=== PATIENT | female | born 1955 | race Caucasian/White ===

== ENCOUNTER → 2020-05-04 | Outpatient (CLI) | payer MEDICARE ==
[~2020-05-04] VITALS: Ht 165.1 cm; Wt 134.5 kg
[2020-05-04] VITALS (15 sets, daily range): BP systolic 95–163; BP diastolic 54–93; PULSE 66–91
[~2020-05-04] MED LIST: HCTZ12.5TAB PO; KLOR-CON SPRIN10 MEQ PO; LIPITOR 40MG TA40 MG PO; PRINIVIL10 MG PO; ZOLOFT 100MG100 MG PO; ZYLOPRIM 100MG100 MG PO
== END ==
LOC: COL.RAD 06:50
DX: K82.8 Other specified diseases of gallbladder (principal)
CPT/HCPCS: J2250; J3010

== ENCOUNTER 2020-06-15 09:53 | Day surgery (SDC) | payer MEDICARE ==
[2020-06-15] VITALS (7 sets, daily range): BP systolic 94–140; BP diastolic 41–71; PULSE 68–97; TEMP 97.5–97.8
[~2020-06-15] VITALS: Ht 165.1 cm; Wt 133.1 kg
--- NOTE | 2020-06-15 10:26 | NUR ---
Initial visit; Radioisotope Technician attempted to comfort patient who is about to have a Port-A-Cath Placement and was weeping. Radioisotope Technician offered encouraging words and prayer.
[2020-06-15] MEDS ORDERED: PROBIOTIC FORMU1 CAP PO (10:42)
--- NOTE | 2020-06-15 10:44 | NUR ---
TO RM 6 AT 1005- CALL LIGHT IN REACH
[2020-06-15] MEDS ORDERED: NORCO 325 MG-51 TAB PO (14:05)
--- NOTE | 2020-06-15 14:25 | NUR ---
TO RM 6 PER CART FROM PACU. DROWSY, BUT AWAKE AND TALKING TO STAFF. DRESSINGS CLEAN DRY INTACT. DENIES PAIN OR DISCOMFORT. DENIES NAUSEA OR VOMITING AT THIS TIME.
--- NOTE | 2020-06-15 14:40 | NUR ---
SAT UP MORE IN BED. RECEIVED GRAPE JUICE.
--- NOTE | 2020-06-15 14:55 | NUR ---
PATIENT ATE 1 PKG OF CRACKERS AND 100% GRAPE JUICE.
--- NOTE | 2020-06-15 15:09 | NUR ---
PATIENT TEXTING ON PHONE. RESTING QUIETLY
--- NOTE | 2020-06-15 15:25 | NUR ---
AMBULATED BATHROOM WITH MINIMAL ASSIST. VOIDED AND AMBULATED BACK TO BED AND TOLERATED WELL.
--- NOTE | 2020-06-15 15:45 | NUR ---
RECEIVED DISCHARGE INSTRUCTIONS AND VERBALIZED UNDERSTANDING. DISCONTINUED IV AND INT- CATHETER INTACT PATIENT TEXTING BROTHER FOR PICKUP PATIENT GETTING DRESSED. CLEAR DRESSING OVER SITE CLEAN DRY INTACT.
--- NOTE | 2020-06-15 16:05 | NUR ---
DISCHARGED PER WC BY NURSING STAFF TO PRIVATE CAR IN CARE OF BROTHER.
== END 2020-06-15 17:12 | disposition home or self-care (01) ==
LOC: SDCO 09:53
DX: C22.1 Intrahepatic bile duct carcinoma (principal); E66.01 Morbid (severe) obesity due to excess calories; I10 Essential (primary) hypertension; E78.5 Hyperlipidemia, unspecified; F32.9 Major depressive disorder, single episode, unspecified; F41.9 Anxiety disorder, unspecified; M17.10 Unilateral primary osteoarthritis, unspecified knee; K11.20 Sialoadenitis, unspecified; Z90.49 Acquired absence of other specified parts of digestive tract; Z88.0 Allergy status to penicillin; Z88.1 Allergy status to other antibiotic agents
CPT/HCPCS: C1788; J0690; J1100; J1644; J1885; J2405; J2704; J3010; J7120

== ENCOUNTER 2020-09-06 14:02 | Inpatient (IN) | payer MEDICARE ==
[~2020-09-06] VITALS: Ht 165.1 cm; Wt 138.2 kg
[~2020-09-06 14:02] MED LIST changes: +NORCO 325 MG-51 TAB PO; +PROBIOTIC FORMU1 CAP PO
[2020-09-06 15:31] VITALS: BP 79/42; PULSE 106; TEMP 97.6
[2020-09-06] MEDS ORDERED: COUMADIN 2MG2 MG/TAB PO (15:40)
[2020-09-06] MEDS ORDERED: MAGNESIUM ELEME30 MG (15:41)
--- NOTE | 2020-09-06 17:27 | NUR ---
Patient Kadie Jones transferred to [facility] via EMS from [facility]. Patient presented in the ER complaining of increased weakness, almost "passed out", but never lost conciousness. 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 PPE must be worn when handling patient's urine for seven days after administration. Last chemo date was 09/03/20, PPE must be work until 09/10/20. Patient has been experiencing N/V/D, which she states is not uncommon due to the chemo. Patient has a chemo port on her right chest. Patient is A&O and is able to ambulate with SBA. Patient's vitals upon arrival are as follows. BP 79/42, Pulse 106, Respirations 20, SPO2 96%, and Temp 97.6. Dr. Raza notified about blood pressure. No IV fluid bolus given due to IVONE. Med list updated. Physical assessment performed. Lungs clear in all alas. Heart rate was tachy but normal S1 and S2 sounds present. Tele on. Bowel sounds audible in all four quadrants. Radial pulses +2 bilaterally, pedal pulses +2 bilaterally. +3 edema present on BLE. No other skin issues noted. Patient was C/O of nausea. 4mg Zofran given as ordered. IV fluids started as ordered. Patient does not C/O any pain or discomfort at this time. Patient denies any further needs. Call light within reach. Fall percautions in place.
[2020-09-06 17:36] VITALS: BP 76/44; PULSE 99; TEMP 97.6
[2020-09-06 18:57] VITALS: BP 79/45; PULSE 103; TEMP 97.6
[2020-09-06] MEDS ORDERED: PRILOSEC 20MG20 MG PO (20:46)
[2020-09-06] MEDS ORDERED: ZOFRAN8 MG PO (20:46)
[2020-09-06] MEDS ORDERED: COMPAZINE 110 MG/TAB PO (20:47)
--- NOTE | 2020-09-06 22:12 | NUR ---
PATIENT ALERT WITHOUT C/O. STATES SHE HAS NO PAIN OR SOB AND NO NEEDS AT THIS TIME.
[2020-09-06 23:00] VITALS: BP 69/44; PULSE 103
--- NOTE | 2020-09-06 23:05 | NUR ---
PATIENT HAS C/O 'HEARTBURN" WITHOUT PAIN RADIATING ELSEWHERE. B/P SHOWS 69/44 R FOREARM, THIS REPRESENTS A DOWNWARD TREND - FLOOR CHARGE AND LOOPER OPERATOR NOTIFIED - WILL TRANSFER TO ICU# 2,
--- NOTE | 2020-09-06 23:19 | NUR ---
Received report from medical nurse, Jennifer.
--- NOTE | 2020-09-06 23:40 | NUR ---
REPORT GIVEN TO MERI LAW IN ICU - PATIENT TRASPORTED W/ ASSISTANCE OF MERI LECHUGA.
--- NOTE | 2020-09-06 23:41 | NUR ---
Patient arrives to ICU room 2 via medical bed. Patient is transferred to bed via sliding board using 4-person assist. Patient is alert and oriented, denies any pain. Initial BP is 99/44, with HR 130 ST; all other vitals within normal limits. Patient arrives with NS running at 75 mL/hr to a chest port. No other IV access at this time. Lily hospitalist, is aware of patient's arrival and at bedside. Received orders to initiate levophed. No further needs noted at this time.
--- NOTE | 2020-09-06 23:50 | NUR ---
Patient's personal belongins include street clothes, purple stud earrings, a purple and silver ring, a silver necklace and pendant, a cell phone and diabetes education coordinator, glasses, and a wallet with $8 mancia. Patient denies having dentures, hearing aids, or assistive devices. Denies use of hospital safe when offered. Belongings placed in patient's closet per her request.
[2020-09-07] VITALS (821 sets, daily range): BP systolic 70–172; BP diastolic 26–84; PULSE 83–150; TEMP 98.1–99; O2SAT 88–100
[2020-09-07 00:33] LABS: BASO % 0.4 % (0.0-2.0); EOS # 0.4 (0.0-0.7); EOS % 3.2 % (0-4.0); GRAN # 9.8 (1.4-6.5); GRAN % 88.2 % (42.2-75.2); LYMPH # 0.6 (1.2-3.4); LYMPH % 5.8 % (20.0-51.0); MEAN CELL VOLUME 98 fl (80.0-100.0); MEAN CORPUSCULAR HGB CONC 33 g/dl (33.0-37.0); MONO # 0.2 (0.1-0.6); MONO % 1.8 % (1.7-9.3); PLATELET COUNT 176 K/mm3 (130-400); REDCELL DISTRIBUTION WIDTH-CV 26.5 % (11.5-14.5)
[2020-09-07 00:34] LABS: HEMATOCRIT 24.5 % (37.0-47.0); HEMOGLOBIN 8.1 g/dl (12.5-16.0); MEAN CORPUSCULAR HEMOGLOBIN 32 pg (27.0-31.0)
[2020-09-07 00:58] LABS: CALCIUM 7.4 mg/dL (8.4-10.2); CREATININE, serum 5.57 (0.52-1.25); POTASSIUM 4.7 mmol/L (3.4-5.0)
[2020-09-07 01:42] LABS: ARTERIAL BLD GAS O2 SATURATION 92.9 % (92-100); ARTERIAL BLD GAS TCO2 CT 21.9; ARTERIAL BLOOD GAS BASE EXCESS -3.3 (-2-2); ARTERIAL BLOOD GAS HCO3 20.8 meq/L (22-26); ARTERIAL BLOOD GAS PCO2 33.6 mmHg (35-45); ARTERIAL BLOOD GAS PO2 67.7 mmHg (80-100); ARTERIAL BLOOD GAS pH 7.41 (7.35-7.45)
--- NOTE | 2020-09-07 02:30 | NUR ---
Notified Lily hospitalist, of patient's HR mid-low 100s following initiation of LR bolus and holding levophed.
[2020-09-07 02:43] LABS: COLLECTION METHOD CLEAN CATCH
[2020-09-07 02:53] LABS: MUCOUS Present /lpf; PH 5 (5-8); URINE APPEARANCE Cloudy; URINE BACTERIA None Seen /hpf; URINE BILIRUBIN Negative (NEGATIVE); URINE BLOOD 1+ (NEGATIVE); URINE COLOR Amber; URINE GLUCOSE Negative (NEGATIVE); URINE KETONE Negative (NEGATIVE); URINE LEUKOCYTE ESTERASE Trace (NEGATIVE); URINE NITRATE Negative (NEGATIVE); URINE PROTEIN(semi-quant) Negative (NEGATIVE); URINE UROBILINOGEN Negative (NEGATIVE)
[2020-09-07 03:01] LABS: CREATININE, serum 5.2 (0.52-1.25)
--- NOTE | 2020-09-07 04:39 | NUR ---
Lily, hospitalist at bedside at roughly 0030. Received orders to obtain CBC and BMP due to most recent labs being obtained at [facility] prior to patient's arrival. Levophed initiated according to orders at 0018; however, patient's HR tachycardic in 130s. Lily notified; who stated HR may be due to anxiety caused by room change to ICU. Per Lily, to continue to monitor HR closely; patient may need Erhan-Synephrine instead of levophed. JOE physician, Dr. Stanton, ordered two 1000mL LR bolus (total of 2000mL); a lactic, and an ABG at approximately 0115. Patient's HR continued to sustain 130-140s; Lily notified, who ordered an EKG. Received orders to hold levophed and to prepare Rehan-Synephrine for administration, but to wait a BP cycle before initiating due to administration of LR boluses. Following 15 mins of bolus administration, there was no improvement in BPs. Rehan-Synephrine initiated at 0200 according to orders. Due to patient's ABG oxygen level of 67.7, patient placed on 2L nasal cannula also at 0200. During initial assessment, patient reports she has not voided since, "this morning," but is unsure of exact time. Patient bladder scanned at roughly 0210, yeilding a result of 14mL. Lily notified. Received orders to place barahona catheter. A 16Fr barahona placed at 0225 with by this RN, and the assistance of dye house worker, Amrita. A total of 90mL of cloudy, dark shemar urine drained following barahona insertion. A sample was sent to lab. Rehan-Synephrine titrated according to orders, up to 200 mcg/min at 0420 with a BP of 68/35. Lily notified. Received orders at 0424 to switch back to levophed, titrating off Rehan-Synephrine in the process. Lily called back at [address] Stanton, who agrees with levophed. Received orders to also bolus a third 1000mL bolus of LR. Will restart levophed, and titrate off Rehan-Synephrine.
[2020-09-07 06:54] LABS: MEAN CELL VOLUME 99 fl (80.0-100.0); MEAN CORPUSCULAR HGB CONC 33 g/dl (33.0-37.0); MEAN PLATELET VOLUME 12.2 fl (7.4-10.4); PLATELET COUNT 199 K/mm3 (130-400); RED BLOOD COUNT 2.35 M/mm3 (4.10-5.30); REDCELL DISTRIBUTION WIDTH-CV 26.5 % (11.5-14.5)
[2020-09-07 06:57] LABS: HEMATOCRIT 23.3 % (37.0-47.0); HEMOGLOBIN 7.7 g/dl (12.5-16.0); MEAN CORPUSCULAR HEMOGLOBIN 33 pg (27.0-31.0)
--- NOTE | 2020-09-07 07:00 | NUR ---
PT RESTING IN BED. PT HAS LEVO RUNNING AT 0.46MCG/KG/HR THRU RIGHT CHEST PORT. PT HAS CONSULTS FOR AND THAT NEED TO BE NOTIFIED. PT DENIES NEEDS AT THSI TIME. WILL CONTIUE TO MONITOR.
[2020-09-07 07:10] LABS: ALBUMIN 2.4 gm/dL (3.5-5.0); BILIRUBIN,TOTAL 0.9 mg/dL (0.0-1.0); CALCIUM 7.1 mg/dL (8.4-10.2); CREATININE, serum 5.11 (0.52-1.25); MAGNESIUM 1.8 mg/dL (1.6-2.3); POTASSIUM 4.7 mmol/L (3.4-5.0); TOTAL PROTEIN 4.7 gm/dL (6.4-8.2)
[2020-09-07 07:11] LABS: INR 4.2 (0.8-3.0)
[2020-09-07 07:13] LABS: PROTHROMBIN TIME 47.4 SECONDS (9.7-12.8)
[2020-09-07 07:21] LABS: EOSINOPHIL 3 % (0-4); LYMPHOCYTE 11 % (20.0-51.0); NEUTROPHILS 86 % (42.0-75.2); PLATELET ESTIMATE NORMAL (NORMAL)
[2020-09-07 07:22] LABS: ANISOCYTOSIS 4+; HYPOCHROMIA 1+; OVALOCYTES 1+; POIKILOCYTOSIS 1+
[2020-09-07 07:23] LABS: SCHISTOCYTES 1+
--- NOTE | 2020-09-07 08:05 | NUR ---
PT CHANGED TO DOUBLE CONCENTRATION OF LEVOPHED. 8MG IN 250ML.
--- NOTE | 2020-09-07 09:08 | NUR ---
BEDSIDE TO EVAL PT. ORDERS RECIEVED. NOTIFIED OF CONSULT. CONSULTED. PROCALCITONIN ADDED. FLUIDS ADDED. LEVO ADJUSTED NEEDED.
[2020-09-07 12:20] LABS: TSH w REFLEX 7.99 uIU/mL (0.465-4.680)
--- NOTE | 2020-09-07 13:28 | NUR ---
Costumer Assistant met with patient to discuss discharge planning. Patient lives alone in [place] and sees CARLA Kelly for primary care. Patient obtains medications from [facility]. Patient reports that she normally does not use any DME and is independent with ADLS. Patient advised that her daughter, Kiera (ph#[phone]) is her DPOA-HC althought SW did not locate copy in EMR. Patient states her daughter should have a copy of it. Patient plans to return home upon discharge. SW spoke with patient about Home Health services and she would be agreeable. SW reviewed HH agencies that serve [place] but patient wasn't sure which agency she would want yet. SW contacted patient's daughter, Kiera who advised she lives eight hours away. Kiera does have copy of DPOA-HC and will email copy to SW. Kiera states patient would not want to go anywhere for rehab which is why Kiera has been talking with patient about HH services. SW also reviewed HH agencies with Kiera. Discharge plan: Home with Home Health services.
--- NOTE | 2020-09-07 13:50 | NUR ---
Teletypesetter Monitor received copy of DPOA-HC and placed on patient's chart.
[2020-09-07 18:21] LABS: FOLATE (FOLIC ACID) 14.6 ng/mL (7.0-31.4)
--- NOTE | 2020-09-07 19:00 | NUR ---
Received report from MERI Allen. Patient resting quietly in bed. Denies any pain or discomfort; all vitals within normal limits. Levophed and vasopressin drips confirmed at the bedside. No further needs noted at this time.
[2020-09-08] VITALS (901 sets, daily range): BP systolic 72–139; BP diastolic 52–79; PULSE 85–99; TEMP 97.9–98.5; O2SAT 82–100
[2020-09-08 05:21] LABS: MEAN CELL VOLUME 97 fl (80.0-100.0); MEAN CORPUSCULAR HGB CONC 33 g/dl (33.0-37.0); MEAN PLATELET VOLUME 11.6 fl (7.4-10.4); PLATELET COUNT 131 K/mm3 (130-400); RED BLOOD COUNT 2.04 M/mm3 (4.10-5.30); REDCELL DISTRIBUTION WIDTH-CV 25.6 % (11.5-14.5)
[2020-09-08 05:25] LABS: HEMATOCRIT 19.8 % (37.0-47.0); MEAN CORPUSCULAR HEMOGLOBIN 32 pg (27.0-31.0)
[2020-09-08 05:27] LABS: HEMOGLOBIN 6.6 g/dl (12.5-16.0); INR 4.4 (0.8-3.0)
[2020-09-08 05:30] LABS: ALBUMIN 2.3 gm/dL (3.5-5.0); BILIRUBIN,TOTAL 0.5 mg/dL (0.0-1.0); CALCIUM 6.8 mg/dL (8.4-10.2); CREATININE, serum 4.33 (0.52-1.25); MAGNESIUM 1.7 mg/dL (1.6-2.3); POTASSIUM 4.8 mmol/L (3.4-5.0); TOTAL PROTEIN 4.4 gm/dL (6.4-8.2)
[2020-09-08 05:34] LABS: PROTHROMBIN TIME 50.4 SECONDS (9.7-12.8)
--- NOTE | 2020-09-08 05:40 | NUR ---
Critical hemoglobin and PT labs relayed to hospitalistLily. Received orders for a type and screen and one unit of irradiated PRBCs.
[2020-09-08 05:52] LABS: BAND 1 % (0-10); LYMPHOCYTE 3 % (20.0-51.0); NEUTROPHILS 95 % (42.0-75.2); NUCLEATED RED BLOOD CELL 1 (0-6)
[2020-09-08 05:53] LABS: ANISOCYTOSIS 3+; OVALOCYTES 1+; PLATELET ESTIMATE NORMAL (NORMAL)
[2020-09-08 05:57] LABS: SCHISTOCYTES 1+
--- NOTE | 2020-09-08 13:27 | NUR ---
Digital Marketing Manager followed up with patient to review discharge plan. SW reviewed PT recommendation for home with home health vs post acute rehab. Patient states she would prefer to go home but may be open to rehab as well. RAYMOND reviewed options in [place]: [facility] and [facility]. Patient would like a referral sent to [facility] but will continue to consider her options. SW also provided patient with the Medicare.gov list of agencies that serve [place]. RAYMOND contacted Sudhir at [facility] and faxed referral. Sudhir advised that patient's primary care provider is a PA and cannot admit, so it would either be Dr. Fischer or Dr. Coco Redd. Sudhir would need to know anticipated discharge date before she could let us know if they can accept. RAYMOND contacted patient's daughter, Kiera to provide update. Discharge plan: [facility] vs Home with Home Health. Awaiting screen from [facility].
--- NOTE | 2020-09-08 20:00 | NUR ---
Assessment complete. Pt is AXO X3, denies having any pain at this time. Breathing is even and unlabored on room air. Pt is sitting up in the bed watching TV at this time and she denies further needs. Call light within reach.
[2020-09-09] VITALS (1124 sets, daily range): BP systolic 86–130; BP diastolic 53–82; PULSE 79–92; TEMP 97.6–99; O2SAT 81–100
[2020-09-09 06:16] LABS: SODIUM 127 mmol/L (137-145)
--- NOTE | 2020-09-09 07:00 | NUR ---
PT RESTING IN BED. VSS. PT HAS LR RUNNING. WILL CONTINUE TO MONITOR.
[2020-09-09 07:18] LABS: MEAN CELL VOLUME 101 fl (80.0-100.0); MEAN CORPUSCULAR HGB CONC 32 g/dl (33.0-37.0); MEAN PLATELET VOLUME 11.8 fl (7.4-10.4); PLATELET COUNT 105 K/mm3 (130-400); RED BLOOD COUNT 1.87 M/mm3 (4.10-5.30); REDCELL DISTRIBUTION WIDTH-CV 25.9 % (11.5-14.5)
--- NOTE | 2020-09-09 07:18 | NUR ---
Bedside shift report given to MERI Allen.
[2020-09-09 07:23] LABS: CALCIUM 7.1 mg/dL (8.4-10.2); CREATININE, serum 3.95 (0.52-1.25); POTASSIUM 4.6 mmol/L (3.4-5.0)
[2020-09-09 07:24] LABS: HEMATOCRIT 18.8 % (37.0-47.0); HEMOGLOBIN 6.1 g/dl (12.5-16.0); MEAN CORPUSCULAR HEMOGLOBIN 33 pg (27.0-31.0)
[2020-09-09 07:53] LABS: ANISOCYTOSIS 2+; BAND 2 % (0-10); LYMPHOCYTE 4 % (20.0-51.0); NEUTROPHILS 94 % (42.0-75.2); PLATELET ESTIMATE DECREASED (NORMAL); SCHISTOCYTES 1+; TEAR DROP CELLS 1+
[2020-09-09 08:30] LABS: INR 1.5 (0.8-3.0); PROTHROMBIN TIME 16.7 SECONDS (9.7-12.8)
[2020-09-09 18:30] LABS: HEMATOCRIT 27.1 % (37.0-47.0); HEMOGLOBIN 9.2 g/dl (12.5-16.0)
[2020-09-10] VITALS (686 sets, daily range): BP systolic 103–139; BP diastolic 53–70; PULSE 74–87; TEMP 97.5–98.1; O2SAT 87–100
--- NOTE | 2020-09-10 07:24 | NUR ---
Bedside shift report given to MERI Jimenez.
--- NOTE | 2020-09-10 08:00 | NUR ---
Report recieved from Randolph JEREZ, all questions answered. Patient denies any pain or nausea. Vital signs stable. Central line with noraml saline infusing to right subclavian. Heart sounds regular, lung sounds diminished in bilateral bases, bowel sounds audible. Patient states daughter to visit today. Kramer in place draining clear shemar urine. Contact pecautions still in place for contact with urine. All safety maintained, will continue to monitor.
--- NOTE | 2020-09-10 09:00 | NUR ---
Patient reports daughter took home birthstone ring.
[2020-09-10 09:33] LABS: MEAN CORPUSCULAR HGB CONC 34 g/dl (33.0-37.0); PLATELET COUNT 101 K/mm3 (130-400); RED BLOOD COUNT 2.87 M/mm3 (4.10-5.30); REDCELL DISTRIBUTION WIDTH-CV 23.6 % (11.5-14.5)
[2020-09-10 09:42] LABS: CALCIUM 7.4 mg/dL (8.4-10.2); CREATININE, serum 3.28 (0.52-1.25); MAGNESIUM 1.4 mg/dL (1.6-2.3)
[2020-09-10 10:00] LABS: POTASSIUM 4.3 mmol/L (3.4-5.0)
[2020-09-10 10:22] LABS: HEMATOCRIT 26.7 % (37.0-47.0); HEMOGLOBIN 9.1 g/dl (12.5-16.0); MEAN CELL VOLUME 93 fl (80.0-100.0); MEAN CORPUSCULAR HEMOGLOBIN 32 pg (27.0-31.0)
[2020-09-10 10:38] LABS: BAND 1 % (0-10); LYMPHOCYTE 13 % (20.0-51.0); METAMYELOCYTE 1 % (0-0); NEUTROPHILS 85 % (42.0-75.2); PLATELET ESTIMATE DECREASED (NORMAL)
--- NOTE | 2020-09-10 10:45 | NUR ---
Report called to Autumn RN patient to go to medical floor room 309. To be transported by bed.
--- NOTE | 2020-09-10 12:20 | NUR ---
Patient brought up to room 309 via bed. Autumn RN at bedside. All safety maintained, call mcmahon within reach.
--- NOTE | 2020-09-10 13:37 | NUR ---
Patient transferred up from the ICU. Upon assessment of the patient VS were as follows, BP 139/70, Respirations 16, SPO2 97% on RA, and Pulse 86. Patient has a large bruise located on her left forearm. Her sacral and groin area are reddened. +3 edema on her BLE. Kramer catheter in place. Site is clean, dry, and intact. Urine is yellow and clear. Patient does not C/O any pain or discomfort at this time. Magnesium is running through patient's central port as ordered. Patient denies any further needs at this time. Will continue to monitor. Call light within reach. Fall percautions in place.
--- NOTE | 2020-09-10 15:12 | NUR ---
Lock And Dam Repairer followed up with patient and patient's daughter to review discharge plan. Patient states she would really like to go to [facility] at discharge. SW advised that a referral has been sent and is still being screened. SW discussed having a second preference and reviewed options including [facility] [place], [facility]patient Rehab, and [facility]. Patient did not want to select a second preference and states she just wants to get back to [place] but does not want to go to [facility]. Patient states she just hopes [facility] will take her. Patient also inquired about the possibility of going home with HH if [facility] cannot take. SW advised that HH would only come out 2-3 times per week. Patient and daughter will continue to discuss discharge plan and second preference. RAYMOND collaborated with Hospitalist who advised patient would be here through the weekend. RAYMOND faxed clinical updates to [facility] and spoke with MERI Berrios as Sudhir was out of the office. Agustina advised it looks like they could possibly accept patient but inquired about her chemotherapy, as she cannot get that while at rehab. RAYMOND contacted Dr. Wolfe's office and left a message for Sun JEREZ. Patient transferred up to the medical floor. RAYMOND collaborated the above information to medical SW.
--- NOTE | 2020-09-10 15:33 | NUR ---
Calibrator Barometers spoke with MERI Garsia at Dr. Wolfe's office who advised Dr. Wolfe is in support of patient going to rehab and holding off on chemo until she completes rehab. SW contacted Agustina JEREZ at [facility] to provide update.
--- NOTE | 2020-09-10 18:22 | NUR ---
Patient resting in bed at this time. Doxycycline running as ordered. Patient denies any pain, discomfort, or needs at this time. Will continue to monitor. Fall percautions in place. Call light within reach.
--- NOTE | 2020-09-10 18:50 | NUR ---
Received report from Caryn. Seen patient awake in bed. Infusion of Doxycycline done. Flushed port. Denies needs at this time.
--- NOTE | 2020-09-10 21:10 | NUR ---
Assesment completed. Patient denies pain. Her lungs are clear. With +2 edema on BLE. With barahona catheter draining clear, yellow urine. Abdominal fold andgroin are reddened, Desenex applied. Call light within reach. Bed alarm on.
[2020-09-11 04:42] VITALS: BP 105/52; PULSE 81; TEMP 97.5
--- NOTE | 2020-09-11 05:57 | NUR ---
Patient had uneventful night. She had been asleep most of the night. She denies pain. Kramer catheter draining adequate amount. Bed alarm on.
[2020-09-11 06:32] LABS: MEAN CELL VOLUME 95 fl (80.0-100.0); MEAN CORPUSCULAR HGB CONC 34 g/dl (33.0-37.0); MEAN PLATELET VOLUME 12.2 fl (7.4-10.4); PLATELET COUNT 78 K/mm3 (130-400); RED BLOOD COUNT 2.75 M/mm3 (4.10-5.30); REDCELL DISTRIBUTION WIDTH-CV 23.5 % (11.5-14.5)
[2020-09-11 06:34] LABS: HEMOGLOBIN 8.8 g/dl (12.5-16.0); MEAN CORPUSCULAR HEMOGLOBIN 32 pg (27.0-31.0)
[2020-09-11 06:49] LABS: ALBUMIN 2.3 gm/dL (3.5-5.0); BILIRUBIN,TOTAL 0.4 mg/dL (0.0-1.0); CALCIUM 7.5 mg/dL (8.4-10.2); CREATININE, serum 3.07 (0.52-1.25); MAGNESIUM 2.2 mg/dL (1.6-2.3); POTASSIUM 4.3 mmol/L (3.4-5.0); TOTAL PROTEIN 4.5 gm/dL (6.4-8.2)
[2020-09-11 07:12] VITALS: BP 111/53; PULSE 81; TEMP 97.6
[2020-09-11 07:19] LABS: LYMPHOCYTE 8 % (20.0-51.0); NEUTROPHILS 91 % (42.0-75.2); PLATELET ESTIMATE DECREASED (NORMAL)
[2020-09-11 07:20] LABS: MYELOCYTE 1 % (0-0)
--- NOTE | 2020-09-11 08:23 | NUR ---
Pt assessment complete. Pt is sitting up in bed upon entry, she is A/O x4. Her breathing is even and unlabored on RA. Pt denies SOB. No pain at this time. She denies N/V and N/T. SCD's in place. Williams LAKHANI. Pt agreeable to get in chair, PT at bedside. Call light within reach.
[2020-09-11 12:23] VITALS: BP 124/51; PULSE 81; TEMP 97.3
--- NOTE | 2020-09-11 13:54 | NUR ---
Warfarin Initial Dosing Pharmacy Note Ordering Provider: MD Suzy Indication: VTE Prophylaxis LABS: INR 1.5, HGB 8.8, HCT 26 Recommendation: RESUME HOME WARFARIN, 5 MG QHS Home Regimen: 5 MG QHS
[2020-09-11 16:03] VITALS: BP 115/50; PULSE 80; TEMP 97.6
[2020-09-11 18:11] LABS: PROTHROMBIN TIME 11.6 SECONDS (9.7-12.8)
[2020-09-11 18:12] LABS: HEMATOCRIT 27.9 % (37.0-47.0); HEMOGLOBIN 9.7 g/dl (12.5-16.0)
[2020-09-11 19:38] VITALS: BP 126/54; PULSE 82; TEMP 97.7
[2020-09-11 23:56] VITALS: BP 114/53; PULSE 77; TEMP 97.6
[2020-09-12 04:37] VITALS: BP 104/47; PULSE 78; TEMP 97.4
[2020-09-12 06:33] LABS: HEMATOCRIT 26.9 % (37.0-47.0); HEMOGLOBIN 9.1 g/dl (12.5-16.0); MEAN CELL VOLUME 94 fl (80.0-100.0); MEAN CORPUSCULAR HEMOGLOBIN 32 pg (27.0-31.0); MEAN CORPUSCULAR HGB CONC 34 g/dl (33.0-37.0); MEAN PLATELET VOLUME 11.9 fl (7.4-10.4); PLATELET COUNT 80 K/mm3 (130-400); RED BLOOD COUNT 2.87 M/mm3 (4.10-5.30); REDCELL DISTRIBUTION WIDTH-CV 23.3 % (11.5-14.5)
[2020-09-12 06:38] LABS: INR 1.1 (0.8-3.0)
[2020-09-12 06:41] LABS: CALCIUM 7.8 mg/dL (8.4-10.2); CREATININE, serum 2.44 (0.52-1.25); POTASSIUM 4.1 mmol/L (3.4-5.0)
--- NOTE | 2020-09-12 06:56 | NUR ---
Patient resting in bed at this time. No signs of pain or discomfort. Patient denies any needs at this time. Will continue to monitor. Call light within reach. Fall percautions in place.
[2020-09-12 07:07] LABS: ANISOCYTOSIS 2+; BAND 4 % (0-10); LYMPHOCYTE 10 % (20.0-51.0); METAMYELOCYTE 3 % (0-0); MYELOCYTE 1 % (0-0); NEUTROPHILS 79 % (42.0-75.2); OVALOCYTES 2+; PLATELET ESTIMATE DECREASED (NORMAL); SCHISTOCYTES 1+
[2020-09-12 07:53] VITALS: BP 128/50; PULSE 83; TEMP 97.4
--- NOTE | 2020-09-12 08:56 | NUR ---
Repositioned patient and performed daily assessment. Patient given scheduled meds. Patient denies any pain or discomfort at this time. Will continue to monitor. Call light within reach. Fall percautions in place.
--- NOTE | 2020-09-12 10:15 | NUR ---
PT worked with patient. Patient currently up in chair visiting with her brother. Covid test collected. Patient denies any pain, discomfort, or needs at this time. Will continue to monitor. Call light within reach. Fall percautions in place.
[2020-09-12 11:47] VITALS: BP 143/68; PULSE 94; TEMP 97.8
[2020-09-12 15:55] VITALS: BP 128/55; PULSE 84; TEMP 97.7
--- NOTE | 2020-09-12 16:09 | NUR ---
Walked with patient from her chair to her bed. Patient was able to walk with minimal assistance. Marianela care performed. Scheduled meds given. SCDS on as ordered. Patient denies any pain, discomfort, or further needs at this time. Will continue to monitor. Call light within reach. Fall percautions in place.
--- NOTE | 2020-09-12 19:33 | NUR ---
Awake, alert, oriented x 4, able to make needs known, sitting up in bed, telemetry running SR, good appetite, barahona draining yellow urine per gravity w/o issue, denies pain
[2020-09-12 19:36] VITALS: BP 123/53; PULSE 85; TEMP 97.2
[2020-09-12 23:42] VITALS: BP 110/51; PULSE 79; TEMP 97.5
[2020-09-13 03:42] VITALS: BP 118/56; PULSE 73; TEMP 97.5
[2020-09-13 06:50] LABS: MEAN CELL VOLUME 95 fl (80.0-100.0); MEAN CORPUSCULAR HGB CONC 33 g/dl (33.0-37.0); MEAN PLATELET VOLUME 11.2 fl (7.4-10.4); PLATELET COUNT 83 K/mm3 (130-400); RED BLOOD COUNT 2.78 M/mm3 (4.10-5.30)
[2020-09-13 06:51] LABS: HEMATOCRIT 26.5 % (37.0-47.0); HEMOGLOBIN 8.8 g/dl (12.5-16.0); MEAN CORPUSCULAR HEMOGLOBIN 32 pg (27.0-31.0)
[2020-09-13 07:08] LABS: INR 1.2 (0.8-3.0); PROTHROMBIN TIME 13.1 SECONDS (9.7-12.8)
[2020-09-13 07:17] LABS: CALCIUM 7.9 mg/dL (8.4-10.2); CREATININE, serum 2.2 (0.52-1.25); POTASSIUM 4.1 mmol/L (3.4-5.0)
[2020-09-13 07:33] LABS: BAND 10 % (0-10); LYMPHOCYTE 11 % (20.0-51.0); METAMYELOCYTE 5 % (0-0); OVALOCYTES 2+; PLATELET ESTIMATE DECREASED (NORMAL); SCHISTOCYTES 1+
[2020-09-13 07:34] LABS: ANISOCYTOSIS 1+; NEUTROPHILS 74 % (42.0-75.2)
[2020-09-13 07:52] VITALS: BP 130/60; PULSE 80; TEMP 97.5
[2020-09-13] MEDS ORDERED: COUMADIN 5MG5 MG/TAB PO (09:14)
[2020-09-13] MEDS ORDERED: DESENEX TP (09:17)
[2020-09-13] MEDS ORDERED: PREDNISONE10 MG PO (09:19)
--- NOTE | 2020-09-13 09:29 | NUR ---
I agree w/student nurse's assessment. Continuing to monitor.
[2020-09-13 11:05] VITALS: BP 126/57; PULSE 85; TEMP 97.3
--- NOTE | 2020-09-13 11:16 | NUR ---
Vitals complete. Patient is stable, sitting in the chair, and visiting with visitor. She reports no pain and states she is ready to leave.
--- NOTE | 2020-09-13 12:27 | NUR ---
Port heparin locked and deaccessed. Pt taken down to ED entrance via wheelchair, accompanied by family. Belongings in tow. Report called to [facility] RN taking pt.
--- NOTE | 2020-09-13 12:54 | NUR ---
Aj from [facility] reports that Dr. Milo Fischer will be able to accept the patient for post acute rehab. The patient discharge today, 09/13. The patient has transportation. RAYMOND faxed discharge orders. RAYMOND contacted the patient's daughter regarding discharge. There are no additional needs at this time.
== END 2020-09-13 12:30 | disposition swing bed (61) | DRG 682 ==
LOC: MEDICAL 14:02 → ICU 23:04 → MEDICAL 09-10 12:52
PROVIDERS: Internal Medicine; Internal Medicine Critical Care Medicine; Internal Medicine Nephrology; Internal Medicine Pulmonary Disease; Student in an Organized Health Care Education/Training Program; ADMIT Hospitalist
DX: N17.9 Acute kidney failure, unspecified (principal); R57.1 Hypovolemic shock; C24.9 Malignant neoplasm of biliary tract, unspecified; I95.9 Hypotension, unspecified; I08.1 Rheumatic disorders of both mitral and tricuspid valves; D64.81 Anemia due to antineoplastic chemotherapy; I12.9 Hypertensive chronic kidney disease with stage 1 through stage 4 chronic kidney disease, or unspecified chronic kidney disease; N18.9 Chronic kidney disease, unspecified; Z20.822 Contact with and (suspected) exposure to COVID-19; D63.8 Anemia in other chronic diseases classified elsewhere; D53.9 Nutritional anemia, unspecified; F32.9 Major depressive disorder, single episode, unspecified; D69.6 Thrombocytopenia, unspecified; B37.2 Candidiasis of skin and nail; R11.2 Nausea with vomiting, unspecified; E66.9 Obesity, unspecified; R73.9 Hyperglycemia, unspecified; E78.5 Hyperlipidemia, unspecified; R53.81 Other malaise; Z79.01 Long term (current) use of anticoagulants; Z79.891 Long term (current) use of opiate analgesic; Z86.718 Personal history of other venous thrombosis and embolism; Z88.0 Allergy status to penicillin; Z88.2 Allergy status to sulfonamides; Z87.440 Personal history of urinary (tract) infections
CPT/HCPCS: 99223-AI; 99232-AI; 99233-AI; 99239; A4314; J1644; J1720; J2185; J2370; J2405; J3475; J7030; J7050; J7060; J7120; J7512; P9040